=== PATIENT | female | born 2000 | race Caucasian/White ===

== ENCOUNTER 2018-05-14 19:44 | Emergency (ER) | payer OTHER ==
[~2018-05-14] VITALS: Ht 170.2 cm; Wt 59.1 kg
[2018-05-14] MEDS ORDERED: WELLBUTRIN 75MG75 MG (20:00)
[2018-05-14] MEDS ORDERED: DESYREL50 MG PO (20:01)
[2018-05-14] MEDS ORDERED: birth control (20:02)
[2018-05-14 22:38] VITALS: BP 108/64
== END 2018-05-14 22:38 | disposition home or self-care (01) ==
LOC: ED 19:44
DX: G43.909 Migraine, unspecified, not intractable, without status migrainosus (principal); J32.1 Chronic frontal sinusitis; J00 Acute nasopharyngitis [common cold]; F41.9 Anxiety disorder, unspecified; F17.210 Nicotine dependence, cigarettes, uncomplicated
CPT/HCPCS: J1885

== ENCOUNTER 2019-09-17 21:48 | Emergency (ER) | payer MEDICAID ==
[~2019-09-17] VITALS: Ht 167.6 cm; Wt 63.2 kg
[~2019-09-17 21:48] MED LIST: DESYREL50 MG PO; WELLBUTRIN 75MG75 MG; birth control
[2019-09-17] MEDS ORDERED: TYLENOL PM EX-1 EACH PO (22:18)
[2019-09-17] MEDS ORDERED: PRENATE ELITE1 TA3 PO (22:18)
[2019-09-17 23:52] VITALS: BP 117/76
== END 2019-09-17 23:52 | disposition home or self-care (01) ==
LOC: ED 21:48
DX: O26.891 Other specified pregnancy related conditions, first trimester (principal); R10.31 Right lower quadrant pain; R10.32 Left lower quadrant pain; O99.341 Other mental disorders complicating pregnancy, first trimester; F41.9 Anxiety disorder, unspecified; F32.9 Major depressive disorder, single episode, unspecified; O99.331 Smoking (tobacco) complicating pregnancy, first trimester; F17.210 Nicotine dependence, cigarettes, uncomplicated; Z87.42 Personal history of other diseases of the female genital tract; Z87.59 Personal history of other complications of pregnancy, childbirth and the puerperium; Z3A.12 12 weeks gestation of pregnancy

== ENCOUNTER 2019-09-28 21:29 | Emergency (ER) | payer MEDICAID ==
[~2019-09-28] VITALS: Ht 167.6 cm; Wt 64.1 kg
[~2019-09-28 21:29] MED LIST changes: +PRENATE ELITE1 TA3 PO; +TYLENOL PM EX-1 EACH PO
[2019-09-28] MEDS ORDERED: PROAIR HFA0.09 MG/AC INH (22:17)
[2019-09-28 22:54] LABS: EOS # 0.4 (0.04-0.40); EOS % 4.7 % (1.0-5.0); HEMATOCRIT 34.5 % (37.0-47.0); HEMOGLOBIN 11.5 g/dL (12.5-16.0); LYMPH# 1.7 (1.50-4.00); MEAN CELL VOLUME 85 fl (78-100); MEAN CORPUSCULAR HEMOGLOBIN 28 pg (27-31); MEAN CORPUSCULAR HGB CONC 33 g/dL (33-37); MEAN PLATELET VOLUME 9.7 fl (7.4-10.4); MONO # 0.8 (0.20-0.80); NEU # 4.5 (1.40-6.50); PLATELET COUNT 239 K/mm3 (130-400); RED BLOOD COUNT 4.07 M/mm3 (4.10-5.30); WHITE BLOOD COUNT 7.4 K/mm3 (4.8-10.8)
[2019-09-28 22:57] LABS: ALBUMIN 4.1 g/dL (3.5-5.0)
[2019-09-28 22:58] LABS: POTASSIUM 3.6 mmol/L (3.5-5.1)
[2019-09-28 22:59] LABS: CALCIUM 9.3 mg/dL (8.3-10.5)
[2019-09-28 23:02] LABS: TOTAL BILIRUBIN 0.2 mg/dL (0.2-1.2)
[2019-09-28 23:06] LABS: URINE APPEARANCE HAZY; URINE BILIRUBIN NEGATIVE (NEGATIVE); URINE BLOOD NEGATIVE (NEGATIVE); URINE COLOR YELLOW; URINE GLUCOSE NEGATIVE (NEGATIVE); URINE KETONE NEGATIVE (NEGATIVE); URINE LEUKOCYTE ESTERASE TRACE (NEGATIVE); URINE NITRATE NEGATIVE (NEGATIVE); URINE PROTEIN(semi-quant) NEGATIVE (NEGATIVE); URINE UROBILINOGEN NORMAL (NORMAL); URINE WBC 16-30 /hpf (0-3)
[2019-09-28] MEDS ORDERED: CEFDINIR300 MG PO (23:46)
[2019-09-29 00:07] VITALS: BP 118/76
== END 2019-09-29 00:12 | disposition home or self-care (01) ==
LOC: ED 21:29
PROVIDERS: Nurse Practitioner Family
DX: O99.512 Diseases of the respiratory system complicating pregnancy, second trimester (principal); J45.901 Unspecified asthma with (acute) exacerbation; J20.9 Acute bronchitis, unspecified; O23.42 Unspecified infection of urinary tract in pregnancy, second trimester; O99.342 Other mental disorders complicating pregnancy, second trimester; F32.9 Major depressive disorder, single episode, unspecified; F41.9 Anxiety disorder, unspecified; O99.332 Smoking (tobacco) complicating pregnancy, second trimester; F17.210 Nicotine dependence, cigarettes, uncomplicated; Z20.828 Contact with and (suspected) exposure to other viral communicable diseases; Z3A.14 14 weeks gestation of pregnancy

== ENCOUNTER 2020-03-15 14:49 | Emergency (ER) | payer MEDICAID ==
[~2020-03-15] VITALS: Ht 167.6 cm; Wt 81.1 kg
[~2020-03-15 14:49] MED LIST changes: +CEFDINIR300 MG PO; +PROAIR HFA0.09 MG/AC INH
[2020-03-15] MEDS ORDERED: PROAIR HFA0.09 MG/AC IH (15:59)
[2020-03-15 16:23] VITALS: BP 112/85
== END 2020-03-15 16:24 | disposition home or self-care (01) ==
LOC: ED 14:49
DX: J45.909 Unspecified asthma, uncomplicated (principal); Z20.828 Contact with and (suspected) exposure to other viral communicable diseases; F17.210 Nicotine dependence, cigarettes, uncomplicated; Z88.0 Allergy status to penicillin

== ENCOUNTER 2020-11-03 10:10 | Emergency (ER) | payer MEDICAID ==
[~2020-11-03] VITALS: Ht 167.6 cm; Wt 70.3 kg
[~2020-11-03 10:10] MED LIST changes: +PROAIR HFA0.09 MG/AC IH
[2020-11-03] MEDS ORDERED: ESCITALOPRAM10 MG PO (10:37)
[2020-11-03 11:55] LABS: BASO # 0.05 (0.02-0.10); EOS # 0.15 (0.04-0.40); EOS % 2.8 % (1.0-5.0); HEMATOCRIT 34.1 % (37.0-47.0); HEMOGLOBIN 10.3 g/dL (12.5-16.0); LYMPH# 1.56 (1.50-4.00); MEAN CELL VOLUME 77 fl (78-100); MEAN CORPUSCULAR HEMOGLOBIN 23 pg (27-31); MEAN CORPUSCULAR HGB CONC 30 g/dL (33-37); MEAN PLATELET VOLUME 9.5 fl (7.4-10.4); MONO # 0.44 (0.20-0.80); NEU # 3.23 (1.40-6.50); PLATELET COUNT 273 K/mm3 (130-400); RED BLOOD COUNT 4.45 M/mm3 (4.10-5.30); RED CELL DISTRIBUTION WIDTH 14.3 % (11.5-14.5); WHITE BLOOD COUNT 5.4 K/mm3 (4.8-10.8)
[2020-11-03 11:59] LABS: ALBUMIN 4.3 g/dL (3.5-5.0); POTASSIUM 3.7 mmol/L (3.5-5.1)
[2020-11-03 12:00] LABS: CALCIUM 8.9 mg/dL (8.3-10.5)
[2020-11-03 12:02] LABS: TOTAL PROTEIN 7.2 g/dL (6.4-8.3)
[2020-11-03 12:03] LABS: TOTAL BILIRUBIN 0.7 mg/dL (0.2-1.2)
[2020-11-03 13:17] VITALS: BP 128/62
== END 2020-11-03 13:18 | disposition home or self-care (01) ==
LOC: ED 10:10
PROVIDERS: Nurse Practitioner
DX: B34.9 Viral infection, unspecified (principal); Z72.0 Tobacco use; Z20.822 Contact with and (suspected) exposure to COVID-19
CPT/HCPCS: J1885; J7030

== ENCOUNTER 2020-12-01 11:28 | Emergency (ER) | payer MEDICAID ==
[~2020-12-01 11:28] MED LIST changes: +ESCITALOPRAM10 MG PO
[2020-12-01] MEDS ORDERED: PULMICORT180 MCG/Ac IH (11:50)
[2020-12-01 12:32] LABS: BASO # 0.04 (0.02-0.10); EOS # 0.03 (0.04-0.40); EOS % 0.3 % (1.0-5.0); HEMOGLOBIN 9.9 g/dL (12.5-16.0); LYMPH# 0.71 (1.50-4.00); MEAN CELL VOLUME 77 fl (78-100); MEAN CORPUSCULAR HEMOGLOBIN 23 pg (27-31); MEAN CORPUSCULAR HGB CONC 30 g/dL (33-37); MEAN PLATELET VOLUME 9.6 fl (7.4-10.4); MONO # 0.67 (0.20-0.80); NEU # 8.08 (1.40-6.50); PLATELET COUNT 257 K/mm3 (130-400); RED CELL DISTRIBUTION WIDTH 13.9 % (11.5-14.5); WHITE BLOOD COUNT 9.6 K/mm3 (4.8-10.8)
[2020-12-01 12:44] LABS: ALBUMIN 4.5 g/dL (3.5-5.0); POTASSIUM 3.8 mmol/L (3.5-5.1)
[2020-12-01 12:46] LABS: CALCIUM 9.5 mg/dL (8.3-10.5)
[2020-12-01 12:47] LABS: TOTAL PROTEIN 7.5 g/dL (6.4-8.3)
[2020-12-01 12:49] LABS: TOTAL BILIRUBIN 0.6 mg/dL (0.2-1.2)
[2020-12-01] MEDS ORDERED: FLONASE ALLERG9.9 ML NS ×2 (12:50→12:55)
[2020-12-01] MEDS ORDERED: CEFDINIR300 MG PO ×2 (12:50→12:55)
[2020-12-01 13:35] VITALS: BP 120/88
== END 2020-12-01 13:04 | disposition home or self-care (01) ==
LOC: ED 11:28
PROVIDERS: Nurse Practitioner
DX: B34.9 Viral infection, unspecified (principal); J06.9 Acute upper respiratory infection, unspecified; H66.90 Otitis media, unspecified, unspecified ear; Z72.0 Tobacco use

== ENCOUNTER 2021-03-07 19:57 | Emergency (ER) | payer MEDICAID ==
[~2021-03-07] VITALS: Ht 172.7 cm; Wt 70.3 kg
[~2021-03-07 19:57] MED LIST changes: +FLONASE ALLERG9.9 ML NS; +PULMICORT180 MCG/Ac IH
[2021-03-07 21:00] LABS: BASO # 0.01 K/mm3 (0.02-0.10); EOS # 0.05 K/mm3 (0.04-0.40); EOS % 1.5 % (1.0-5.0); HEMATOCRIT 31.7 % (37.0-47.0); HEMOGLOBIN 9.4 g/dL (12.5-16.0); LYMPH# 0.75 K/mm3 (1.50-4.00); MEAN CELL VOLUME 75 fl (78-100); MEAN CORPUSCULAR HEMOGLOBIN 22 pg (27-31); MEAN CORPUSCULAR HGB CONC 30 g/dL (33-37); MONO # 0.29 K/mm3 (0.20-0.80); NEU # 2.17 K/mm3 (1.40-6.50); PLATELET COUNT 210 K/mm3 (130-400); RED BLOOD COUNT 4.23 M/mm3 (4.10-5.30); RED CELL DISTRIBUTION WIDTH 15.5 % (11.5-14.5); WHITE BLOOD COUNT 3.3 K/mm3 (4.8-10.8)
[2021-03-07 21:12] LABS: URINE APPEARANCE CLOUDY; URINE BILIRUBIN NEGATIVE (NEGATIVE); URINE BLOOD NEGATIVE (NEGATIVE); URINE COLOR YELLOW; URINE GLUCOSE NEGATIVE (NEGATIVE); URINE KETONE NEGATIVE (NEGATIVE); URINE LEUKOCYTE ESTERASE NEGATIVE (NEGATIVE); URINE NITRATE NEGATIVE (NEGATIVE); URINE PROTEIN(semi-quant) TRACE mg/dL (NEGATIVE); URINE UROBILINOGEN NORMAL (NORMAL)
[2021-03-07 21:14] LABS: ALBUMIN 4.3 g/dL (3.5-5.0); POTASSIUM 3.6 mmol/L (3.5-5.1)
[2021-03-07 21:15] LABS: CALCIUM 9.1 mg/dL (8.3-10.5)
[2021-03-07 21:16] LABS: TOTAL PROTEIN 7.4 g/dL (6.4-8.3)
[2021-03-07 21:18] LABS: TOTAL BILIRUBIN 0.2 mg/dL (0.2-1.2)
[2021-03-07] MEDS ORDERED: PROAIR HFA0.09 MG/AC IH (21:42)
[2021-03-07 21:55] VITALS: BP 135/84
== END 2021-03-07 21:55 ==
LOC: ED 19:57
PROVIDERS: Physician Assistant
DX: R05.9 Cough, unspecified (principal)

== ENCOUNTER 2021-07-28 05:54 | Emergency (ER) | payer MEDICAID ==
[~2021-07-28] VITALS: Ht 167.6 cm; Wt 67.8 kg
[2021-07-28 07:29] VITALS: BP 115/81
== END 2021-07-28 07:33 | disposition home or self-care (01) ==
LOC: ED 05:54
DX: S93.401A Sprain of unspecified ligament of right ankle, initial encounter (principal); F17.210 Nicotine dependence, cigarettes, uncomplicated; Z91.040 Latex allergy status; X50.1XXA Overexertion from prolonged static or awkward postures, initial encounter; Y92.481 Parking lot as the place of occurrence of the external cause
CPT/HCPCS: J1885; L4386

== ENCOUNTER → 2022-06-11 | Outpatient (CLI) | payer SELFPAY ==
[~2022-06-11] MED LIST changes: +CYMBALTA60 M1 PO; +ED TYLENOL6 UDTAB/BO PO; +LORAZEPAM0.5 M1 PO; +NEURONTIN300 MG/CAP PO; +REGLAN5 M1 PO
== END ==
LOC: LAB 13:46
DX: N30.01 Acute cystitis with hematuria (principal); N92.6 Irregular menstruation, unspecified

== ENCOUNTER 2023-01-14 18:19 | Emergency (ER) | payer OTHER ==
[~2023-01-14] VITALS: Ht 167.6 cm; Wt 84.1 kg
[~2023-01-14 18:19] MED LIST changes: +MACROBID 100 M100 MG PO; +PHENERGAN 25 TA25 MG PO; +PYRIDIUM100 M1 PO
[2023-01-14 18:50] VITALS: BP 131/85
[2023-01-14] MEDS ORDERED: HYDROXYZINE HCL25 M1 (18:58)
== END 2023-01-14 19:42 | disposition home or self-care (01) ==
LOC: ED 18:19
DX: O26.893 Other specified pregnancy related conditions, third trimester (principal); R20.8 Other disturbances of skin sensation; Z3A.33 33 weeks gestation of pregnancy; Z91.040 Latex allergy status; Z28.310 Unvaccinated for COVID-19